=== PATIENT | female | born 1980 | race Two or more races ===

== ENCOUNTER 2016-05-13 18:21 | Emergency (ER) | payer OTHER ==
[~2016-05-13] VITALS: Ht 162.6 cm; Wt 97.5 kg
[~2016-05-13 18:21] MED LIST: FIORICET1 EA ORAL; NKM
[2016-05-13] MEDS ORDERED: Bacitracin Oint UD TOPIC ONE (18:45)
[2016-05-13] MEDS ORDERED: Norco 5mg/325mg tab ORAL ONE (18:45)
[2016-05-13] MEDS ORDERED: Lidocaine 1% MPF 10mg/ml 5ml INJ ONE (18:45)
[2016-05-13] MEDS ORDERED: TdaP Vaccine 0.5ml Syr IM ONE (18:45)
[2016-05-13 18:55] VITALS: BP 144/93
[2016-05-13] MEDS ORDERED: CEPHALEXIN500 MG ORAL (20:11)
[2016-05-13] MEDS ORDERED: NORCO 5-325 TA1 EAC1 ORAL (20:11)
[2016-05-13] MEDS ORDERED: IBUPROFEN600 MG ORAL (20:11)
[2016-05-13 20:29] VITALS: BP 134/84
[2016-05-13 20:30] VITALS: BP 134/84
--- NOTE | 2016-05-14 11:13 | Diagnostic Imaging Report ---
Indication: pain Findings: 3 views of the right hand were obtained. There is a fracture of the tuft of the third ray. Minimal distraction is noted. Fracture is comminuted. Impression: Acute comminuted fracture of tuft of the third distal phalanx
--- NOTE | 2016-05-16 12:07 | Emergency Room Report ---
History of Present Illness General Chief Complaint: Upper Extremity Injury Source: Patient Present Illness HPI The patient is a 35-year-old female presenting for injury to the right third finger which occurred today. The patient states that she closed the house door on the finger by accident. The patient noticed pain and bleeding to this area. Pain is described as a 9/10 dull/throbbing ache and does not radiate. Pain is worse with touch. The patient denies prior injury to this area. Patient denies numbness or tingling. The patient denies any other injury and denies other symptoms including N, V, F, chills, rash Patient is unsure of last tetanus shot Allergies: Coded Allergies: No Known Allergies (Unverified , 09/30/14) Patient History Past Medical History: see triage record Pertinent Family History: none Last Menstrual Period: 03/23/16 Now: No Reviewed Nursing Documentation: PMH: Agreed, PSxH: Agreed Nursing Documentation-PMH Hx Cardiac Problems: No Hx Cancer: No Hx Gastrointestinal Problems: No Review of Systems All Other Systems: negative except mentioned in HPI Physical Exam Vital Signs Date Time Temp Pulse Resp B/P Pulse Ox O2 Delivery O2 Flow Rate FiO2 05/13/16 18:30 98.6 110 20 144/93 98 Room Air Sp02 EP Interpretation: reviewed, normal General Appearance: no apparent distress, alert, GCS 15, non-toxic Head: normocephalic, atraumatic Eyes: bilateral eye PERRL, bilateral eye normal inspection ENT: hearing grossly normal, normal pharynx, no angioedema, normal voice Neck: full range of motion, supple/symm/no masses Musculoskeletal: normal range of motion, tender - TTP over the R 3rd distal finger Neurologic: alert, oriented x3, responsive, motor strength/tone normal, sensory intact, normal gait, speech normal Psychiatric: judgement/insight normal, memory normal, mood/affect normal, no suicidal/homicidal ideation Skin: normal turgor, laceration - There is a deep laceration to the R 3rd finger distal to DIPJ. Semi-circumferential. 3cm in length Lymphatic: no adenopathy Procedures Splinting Splinting : Consent: Verbal Location: R 3rd digit Pre-Made Type: metal - finger Splint: finger Pre-Proc Neuro Vasc Exam: normal Post-Proc Neuro Vasc Exam: normal Patient Tolerated: Well Complications: None Laceration/Wound Repair Laceration/Wound Repair : Consent: Verbal Wound Location: upper extremity Wound's Depth, Shape: irregular Wound Length (cm): 3 Wound Explored: clean Irrigated w/ Saline (ccs): 200 Betadine Prep?: Yes Anesthesia: 1% Lidocaine Volume Anesthetic (ccs): 5 Wound Debrided: minimal Wound Repaired With: sutures Suture Size/Type: 5:0, proline Number of Sutures: 4 Layer Closure?: No Sterile Dressing Applied?: Yes Splint Applied?: Yes Type of Splint Applied: metal finger Sling Applied?: No Patient Tolerated: Well Complications: None Medical Decision Making PA Attestation Dr. Rivers is my supervising physician. Patient management was discussed with my supervising physician Diagnostic Impression: Primary Impression: Open fracture of finger ER Course The patient is a 35-year-old female presenting for injury to the right third finger which occurred today. Ddx considered include but not limited to laceration, fracture, tendon/ligament injury, avulsion, nerve damage PE: vitals WNL. NAD There is a deep laceration to the R 3rd finger distal to DIPJ. Semi- circumferential. 3cm in length. SILT. Full AROM. Nail intact The wound was copiously irrigated with normal saline and cleaned with betadine. A 27g needle was used to administer 5mL of lidocaine w.o epi for digital block. 4 sutures were placed with 5-0 prolene. The wound was well approximated and the patient tolerated the procedure well. The wound was then cleaned and bacitracin was applied. This wound was closed loosely. A splint/sling was placed Xray: Acute comminuted fracture of tuft of the third distal phalanx Tetanus vaccination given. Because this was an open fracture, the patient is advised she needs to see hand surgeon/orthopedist as soon as possible. The patient is given two referrals. Pt will return to ER if needed for any reason including increasing pain, numbness/tingling, signs of wound infection, fever Pt given prescription for keflex and pain medication. Other X-Ray Diagnostic Results Other X-Ray Diagnostic Results : X-Ray Ordered: R hand Date: May 13, 2016 EP Interpretation: Yes Findings: other - fracture of the 3rd distal phalynx Number of Views: 3 PA Scribe Text I am acting as scribe for my supervising physician. My supervising physician's interpretation of the R hand xrays are there is a fracture of the third distal phalanx Last Vital Signs Date Time Temp Pulse Resp B/P Pulse Ox O2 Delivery O2 Flow Rate FiO2 05/13/16 20:30 98.6 87 20 134/84 98 Room Air Status: improved Disposition: HOME, SELF-CARE Condition: Improved Scripts Cephalexin* (KEFLEX*) 500 Mg Capsule 500 MG ORAL EVERY 6 HOURS, #28 CAP Prov: GISELLE SIMS P.A. 05/13/16 Hydrocodone Bit/Acetaminophen 5-325* (NORCO 5-325 TABLET*) 1 Each Tablet 1 TAB ORAL Q6HR Y for For Pain, #10 TAB Prov: GISELLE SIMS P.A. 05/13/16 Ibuprofen* (MOTRIN*) 600 Mg Tablet 600 MG ORAL Q8H Y for For Pain, #30 TAB 0 Refills Prov: GISELLE SIMS P.A. 05/13/16 Referrals: [facility],REFERRING (PCP) IMMANUEL GUILLAUME PERRY M.D. Patient Instructions: Laceration Care, Adult, Finger Fracture Additional Instructions: I discussed my findings with the patient. All questions and concerns have been answered. Treatment and medication compliance have been addressed. Return to ED if pain remains or worsens, numbness or tingling occurs, new rash is noticed, fever is noticed, or if needed for any reason. The patient is given information to see orthopedic physician as soon as possible. Patient verbalized understanding of discharge instructions. GISELLE SIMS May 16, 2016 12:07
== END 2016-05-13 20:30 | disposition home or self-care (01) ==
LOC: EMR 20:11
DX: S62.632B Displaced fracture of distal phalanx of right middle finger, initial encounter for open fracture (principal); W23.0XXA Caught, crushed, jammed, or pinched between moving objects, initial encounter; Y92.019 Unspecified place in single-family (private) house as the place of occurrence of the external cause; Z23 Encounter for immunization
CPT/HCPCS: 12002; 29280; 73130; 90471; 90715; 99284; Z7502

== ENCOUNTER 2019-06-30 01:40 | Emergency (ER) | payer OTHER ==
[~2019-06-30] VITALS: Ht 165.1 cm; Wt 77.1 kg
[~2019-06-30 01:40] MED LIST changes: +CEPHALEXIN500 MG ORAL; +IBUPROFEN600 MG ORAL; +NORCO 5-325 TA1 EAC1 ORAL
--- NOTE | 2019-06-30 02:10 | NUR ---
ED Nurse Note: Recieved pt from home, here with c/o needing pain meds, pt has hx of carpul tunnels surgery to right hand and c/o wrist pain at 10/10 and home meds not working for past 2 days, denies re-injury or any other omnplaints, pt able to mofe extremity, all pulses present and cap refill less than 3 sec.
[2019-06-30] MEDS ORDERED: NORCO 5-325 TA1 EAC1 ORAL (02:42)
[2019-06-30 02:45] VITALS: BP 129/84
--- NOTE | 2019-06-30 02:45 | NUR ---
ER DISCHARGE NOTE: Patient is cleared to be discharged per ERMD, pt is aox4, on room air, with stable vital signs. pt was given dc and prescription instructions, pt was able to verbalize understanding, pt id band removed without complications. pt is able to ambulate with steady gait. pt took all belongings.
--- NOTE | 2019-06-30 03:46 | Emergency Room Report ---
History of Present Illness General Chief Complaint: Upper Extremity Injury Source: Patient Present Illness HPI 38-year-old female presents for pain to right wrist. History of carpal tunnel and has had surgery on both wrists. States she is having increasing pain to the right wrist for the last few days. Normally relieved with [id number]-[id number] medication but is not resolving at this time. Denies any fall or injury. Pain is 10 out of 10, throbbing, nonradiating. No other aggravating relieving factors. Denies any other associated symptoms Allergies: Coded Allergies: No Known Allergies (Unverified , 09/30/14) COVID-19 Screening Contact w/high risk pt: No Recent Travel to affected area: No Experienced COVID-19 symptoms?: No COVID-19 Testing performed ORTHOPEDIC DESIGNER: No Patient History Past Medical History: none Past Surgical History: none Pertinent Family History: none Social History: Denies: smoking, alcohol use, drug use Last Menstrual Period: 06-19-2019 Now: No Immunizations: UTD Reviewed Nursing Documentation: PMH: Agreed; PSxH: Agreed Nursing Documentation-PMH Hx Cardiac Problems: No Hx Cancer: No Hx Gastrointestinal Problems: No Review of Systems All Other Systems: negative except mentioned in HPI Physical Exam Vital Signs Date Time Temp Pulse Resp B/P (MAP) Pulse Ox O2 Delivery O2 Flow Rate FiO2 06/30/19 02:01 98.2 104 18 125/85 (98) 95 Room Air Sp02 EP Interpretation: reviewed, normal General Appearance: no apparent distress, alert, GCS 15, non-toxic Head: normocephalic, atraumatic Eyes: bilateral eye normal inspection, bilateral eye PERRL ENT: hearing grossly normal, normal pharynx, no angioedema, normal voice Neck: full range of motion, supple/symm/no masses Respiratory: chest non-tender, lungs clear, normal breath sounds, speaking full sentences Cardiovascular #1: regular rate, rhythm, no edema Cardiovascular #2: 2+ carotid (R), 2+ carotid (L), 2+ radial (R), 2+ radial (L) , 2+ dorsalis pedis (R), 2+ dorsalis pedis (L) Gastrointestinal: normal bowel sounds, non tender, soft, non-distended, no guarding, no rebound Rectal: deferred Genitourinary: normal inspection, no CVA tenderness Musculoskeletal: back normal, normal range of motion, gait/station normal, non- tender Neurologic: alert, motor strength/tone normal, oriented x3, sensory intact, responsive, speech normal Psychiatric: judgement/insight normal, memory normal, mood/affect normal, no suicidal/homicidal ideation Reflexes: 3+ bicep (R), 3+ bicep (L), 3+ tricep (R), 3+ tricep (L), 3+ knee (R) , 3+ knee (L) Lymphatic: no adenopathy Medical Decision Making Diagnostic Impression: Primary Impression: Carpal tunnel syndrome Qualified Codes: G56.01 - Carpal tunnel syndrome, right upper limb ER Course Hospital Course 38-year-old female presents to ED complaining of R wrist pain no trauma Differential diagnoses include: Fracture, dislocation, sprain, contusion, bursitis Clinical course Patient placed on stretcher. After initial history, physical exam reveals an middle-aged female in no acute distress. There is pain localized to the fourth and fifth digits of right hand. No focal neurological deficits. Consistent with carpal tunnel syndrome. I discussed findings with patient. Patient would benefit from wearing a wrist splint which she states she has at home. Patient will start a short course of [place]. Patient would benefit from outpatient Ortho evaluation. States she will follow-up with her surgeon. Safe for discharge for close outpatient follow -up Diagnosis - carpal tunnel syndrome stable and discharged to home with prescription for [place]. Followup with Ortho. Return to ED if symptoms recur or worsen Last Vital Signs Date Time Temp Pulse Resp B/P (MAP) Pulse Ox O2 Delivery O2 Flow Rate FiO2 06/30/19 02:45 98.3 77 18 129/84 95 Room Air Status: improved Disposition: HOME, SELF-CARE Condition: Stable Scripts Hydrocodone Bit/Acetaminophen 5-325* (NORCO 5-325 TABLET*) 1 Each Tablet 1 TAB ORAL Q6H PRN for FOR PAIN, #10 TAB 0 Refills Prov: Yo Quinonez MD 06/30/19 Referrals: [facility],REFERRING (PCP) Cody Moss MD Patient Instructions: Carpal Tunnel Syndrome, [id number] Yo Quinonez MD June 30, 2019 03:46
== END 2019-06-30 02:45 | disposition home or self-care (01) ==
LOC: EMR 02:17
DX: G56.01 Carpal tunnel syndrome, right upper limb (principal)
CPT/HCPCS: 99282

== ENCOUNTER 2019-08-03 04:40 | Emergency (ER) | payer OTHER ==
[~2019-08-03] VITALS: Ht 165.1 cm; Wt 86.2 kg
[2019-08-03 04:58] VITALS: BP 136/98
[2019-08-03 05:00] VITALS: BP 136/98
--- NOTE | 2019-08-03 05:00 | Emergency Room Report ---
History of Present Illness General Chief Complaint: General Complaint Source: Patient Present Illness HPI Patient presents with complaints of left wrist pain reports that she has had previous surgery on the right wrist At this hospital and had left wrist surgery on the left side at a different facility she felt that the left wrist was now exacerbated Denies any acute trauma or fall denies any elbow pain denies any fevers or chills denies any swelling pain is worse with flexing the hand also increased with extension at the wrist Allergies: Coded Allergies: No Known Allergies (Unverified , 09/30/14) COVID-19 Screening Contact w/high risk pt: No Recent Travel to affected area: No Experienced COVID-19 symptoms?: No COVID-19 Testing performed PSYCHOMETRICIAN: No Patient History Past Medical History: see triage record Last Menstrual Period: 07/19 Now: No : 3 Para: 1 Reviewed Nursing Documentation: PMH: Agreed; PSxH: Agreed Nursing Documentation-PMH Hx Cancer: No Hx Gastrointestinal Problems: No Review of Systems All Other Systems: negative except mentioned in HPI Physical Exam Vital Signs Date Time Temp Pulse Resp B/P (MAP) Pulse Ox O2 Delivery O2 Flow Rate FiO2 08/03/19 04:45 98.2 102 136/98 (111) 99 Room Air Sp02 EP Interpretation: reviewed, normal General Appearance: well appearing, no apparent distress Head: normocephalic, atraumatic Eyes: bilateral eye PERRL, bilateral eye EOMI ENT: hearing grossly normal, normal pharynx, TMs + canals normal, uvula midline Neck: full range of motion, supple, no meningismus, no bony tend Respiratory: no respiratory distress, no retraction, no accessory muscle use Gastrointestinal: normal bowel sounds, non tender, soft, no mass, no organomegaly Musculoskeletal: other - Some discomfort on palpation of the mid palmar wrist aspect Neurologic: motor strength/tone normal, oriented x3, sensory intact, responsive Psychiatric: mood/affect normal Skin: no rash Lymphatic: normal inspection, no adenopathy Procedures Splinting Splinting : Consent: Verbal Location: Left wrist Pre-Made Type: velcro Splint: volar Pre-Proc Neuro Vasc Exam: normal Post-Proc Neuro Vasc Exam: normal Patient Tolerated: Well Complications: None Medical Decision Making Diagnostic Impression: Primary Impression: Carpal tunnel syndrome Additional Impression: wrist pain ER Course Patient's history and findings are consistent with likely carpal tunnel syndrome patient is provided a splint She has been provided [place] here in the last month I felt that it was more appropriate for her to follow-up with primary physician for further opiate medication patient does feel improved with the splint applied And is stable for close outpatient follow-up patient did not want any other medications at this time Last Vital Signs Date Time Temp Pulse Resp B/P (MAP) Pulse Ox O2 Delivery O2 Flow Rate FiO2 08/03/19 04:45 98.2 102 136/98 (111) 99 Room Air Status: improved Disposition: HOME, SELF-CARE Condition: Improved Referrals: [facility]ELLE MASSEY,REFERRING (PCP) [facility] Jamia Leger [facility] Patient Instructions: Carpal Tunnel Syndrome Additional Instructions: Patient is provided with the discharge instructions notified to follow up with primary doctor in the next 2-3 days otherwise return to the er with any worsening symptoms. Please note that this report is being documented using [email or web address] technology. This can lead to erroneous entry secondary to incorrect interpretation by the dictating instrument. Eric Bahena DO Aug 03, 2019 05:00
== END 2019-08-03 05:00 | disposition home or self-care (01) ==
LOC: EMR 04:48
DX: G56.02 Carpal tunnel syndrome, left upper limb (principal); M25.532 Pain in left wrist
CPT/HCPCS: 29125; Z7502; 99282

== ENCOUNTER 2019-11-24 08:46 | Emergency (ER) | payer OTHER ==
[~2019-11-24] VITALS: Ht 165.1 cm; Wt 90.7 kg
[~2019-11-24 08:46] MED LIST changes: +ACETAMINOPHEN500 M3 ORAL
[2019-11-24 08:53] VITALS: BP 131/84
--- NOTE | 2019-11-24 09:02 | NUR ---
ED Nurse Note: Patient from home and walked in due to abscess on her RLQ started a couple of days ago. Pt reports that it popped out yesterday and pus came out. Noted open yellow abscess with mild redness on surroundings. No pus coming out at this time. AAO x4 and ambulatory.
[2019-11-24] MEDS ORDERED: BACTRIM DS TAB1 EAC1 ORAL (09:03)
[2019-11-24] MEDS ORDERED: CEPHALEXIN500 M1 ORAL (09:03)
--- NOTE | 2019-11-24 09:04 | NUR ---
ED Nurse Note: Wound Culture sent to lab.
[2019-11-24 09:10] VITALS: BP 127/80
--- NOTE | 2019-11-24 09:10 | NUR ---
ER DISCHARGE NOTE: Patient is cleared to be discharged per ERMD, pt is aox4, on room air, with stable vital signs. pt was given dc and prescription instructions, pt was able to verbalize understanding, pt id band removed. pt is able to ambulate with steady gait. pt took all belongings.
--- NOTE | 2019-11-24 09:10 | Emergency Room Report ---
History of Present Illness General Chief Complaint: Skin Rash/Abscess Source: Patient, Medical Record Present Illness HPI Patient is a 39-year-old obese female denies any past medical history who presents to the ER complaining of an ingrown hair to her right lower abdomen. Patient states that she noticed it several days ago and last night she "popped" the pimple and pus came out. She states that since then the swelling has improved as well as the pain. She denies any fever or chills. She denies any nausea or vomiting. Patient states that she did not take any antibiotics as of yet. She states that she has been cleaning it with alcohol. She denies any tylor st pain or shortness of breath. Allergies: Coded Allergies: No Known Allergies (Unverified , 09/30/14) COVID-19 Screening Contact w/high risk pt: No Recent Travel to affected area: No Experienced COVID-19 symptoms?: No COVID-19 Testing performed PICKERS MATERIAL HANDLERS: Yes COVID-19 Screening: Positive COVID-19 COVID-19 Testing Source: na Patient History Last Menstrual Period: 10/22/2019 Reviewed Nursing Documentation: PMH: Agreed; PSxH: Agreed Nursing Documentation-PMH Hx Cancer: No Hx Gastrointestinal Problems: No Review of Systems All Other Systems: negative except mentioned in HPI Physical Exam Vital Signs Date Time Temp Pulse Resp B/P (MAP) Pulse Ox O2 Delivery O2 Flow Rate FiO2 11/24/19 08:53 98.2 95 18 131/84 (100) 96 Room Air Sp02 EP Interpretation: reviewed, normal General Appearance: no apparent distress, alert, GCS 15, non-toxic Head: normocephalic, atraumatic Eyes: bilateral eye normal inspection, bilateral eye PERRL ENT: hearing grossly normal, normal pharynx, no angioedema, normal voice Neck: full range of motion, supple/symm/no masses Respiratory: chest non-tender, lungs clear, normal breath sounds, speaking full sentences Cardiovascular #1: regular rate, rhythm, no edema Gastrointestinal: other - Right lower quadrant abdominal wall abscess that has drained minimal fluctuance with small amount of surrounding cellulitis no tenderness to palpation no guarding and no rebound, overweight Genitourinary: no CVA tenderness Musculoskeletal: normal range of motion Neurologic: chemical research technician III-XII nml as tested, oriented x3 Psychiatric: no suicidal/homicidal ideation Lymphatic: no adenopathy Medical Decision Making Diagnostic Impression: Primary Impression: Abscess ER Course Local wound care has been performed. Wound culture has been sent. A skin marker has been used to luke the area of cellulitis around the abscess. Patient advised to immediately return to the ER if it passes the line. Patient is afebrile and nontoxic-appearing. She has been started on Bactrim and Keflex. After discussing risks and benefits of further diagnostics, treatment plans, as well as indications for and risks of admission, the patient is agreeable to being discharged home. I have explained that their evaluation and treatment in the emergency department today is an important step towards them achieving better health but that their evaluation today is not intended to replace further evaluation and treatment by a physician in their local clinic. I have explained that while the current findings suggest no immediate life threatening emergency they will require further evaluation and treatment by a physician of their choice in their area. They understand that it will be necessary for them to review the final reports of their ED visit with their clinic physician. We have reviewed indications for return to the Emergency Department. I have explained that additional time may need to pass and/or additional testing as an outpatient may be necessary before a definitive diagnosis can be made. They tell me they are willing to follow up as instructed within the timeframe I recommend. They a ppear to understand what we discussed. Additionally they understand that if they are unable to be seen by an outpatient physician they are welcome, and in fact should, return to the Emergency Department for a repeat evaluation. The patient is stable at time of discharge. Last Vital Signs Date Time Temp Pulse Resp B/P (MAP) Pulse Ox O2 Delivery O2 Flow Rate FiO2 11/24/19 08:53 98.2 95 18 131/84 96 Room Air Disposition: HOME, SELF-CARE Condition: Stable Scripts Trimethoprim/Sulfamethoxazole 160/800* (BACTRIM DS TABLET*) 1 Each Tablet 1 TAB ORAL Q12H for 10 Days, #20 TAB 0 Refills Prov: Ragini Davila M.D. 11/24/19 Cephalexin* (KEFLEX*) 500 Mg Tablet 500 MG ORAL EVERY 6 HOURS for 10 Days, CAP Prov: Ragini Davila M.D. 11/24/19 Referrals: DANIELLE MASSEY,REFERRING (PCP) Patient Instructions: Abscess Additional Instructions: The patient was provided with discharge instructions, notified to follow-up with a primary care doctor and or specialist in the next 24-48 hours, and to return to the ED if they have worsening of their symptoms. Please note that this report is being documented using [employer] technology. This can lead to erroneous entry secondary to incorrect interpretation by the dictating instrument. Ragini Davila M.D. Nov 24, 2019 09:10
[2019-11-24] MEDS ORDERED: Bactrim-DS 1 tab ORAL ONE (09:15)
[2019-11-24] MEDS ORDERED: Cephalexin 500mg cap ORAL ONE (09:15)
[2019-11-26] MEDS ORDERED: IBUPROFEN600 M1 ORAL (19:57)
[2019-11-26] MEDS ORDERED: METFORMIN HCL500 M1 ORAL (19:57)
== END 2019-11-24 09:10 | disposition home or self-care (01) ==
LOC: EMR 08:56
DX: L02.211 Cutaneous abscess of abdominal wall (principal); E66.3 Overweight; Z68.33 Body mass index [BMI] 33.0-33.9, adult
CPT/HCPCS: 87070; 87205; Z7502; 99282

== ENCOUNTER → 2019-11-26 | Emergency (ER) | payer OTHER ==
[~2019-11-26] VITALS: Ht 165.1 cm; Wt 90.7 kg
[~2019-11-26] MED LIST changes: +BACTRIM DS TAB1 EAC1 ORAL; +CEPHALEXIN500 M1 ORAL; +IBUPROFEN600 M1 ORAL; +Ketorolac 30mg Inj IV ONE; +METFORMIN HCL500 M1 ORAL; +Omnipaque-300 100ml vial INJ PRN; +cefTRIAXone 1 GM in NS 55 ML IVPB ONE
[2019-11-26 17:10] VITALS: BP 122/78
--- NOTE | 2019-11-26 17:10 | NUR ---
ED Nurse Note: Patient walked in to ER due to infected wound on right abdomen. Stated hase no idea how she got it.Patient AAO x4, VSS at this time.
--- NOTE | 2019-11-26 17:54 | NUR ---
ED Nurse Note: US by bed side
[2019-11-26 18:05] LABS: BASOPHILS % (AUTO) 0.7 % (0.0-2.0); EOSINOPHILS % (AUTO) 7.1 % (0.0-3.0); HEMATOCRIT 35.5 % (37.0-47.0); HEMOGLOBIN 11.1 G/DL (12.0-16.0); MEAN CORPUSCULAR VOLUME 71 FL (80-99); MONOCYTES % (AUTO) 5.9 % (1.0-10.0); NEUTROPHILS % (AUTO) 56.2 % (45.0-75.0); PLATELET COUNT 422 K/UL (150-450); RED BLOOD COUNT 5.02 M/UL (4.20-5.40); RED CELL DISTRIBUTION WIDTH 16.2 % (11.6-14.8); WHITE BLOOD COUNT 6.1 K/UL (4.8-10.8)
[2019-11-26 18:14] LABS: ANION GAP 11 mmol/L (5-15); BLOOD UREA NITROGEN 7 mg/dL (7-18); CALCIUM 8.8 MG/DL (8.5-10.1); CARBON DIOXIDE 23 MMOL/L (21-32); CHLORIDE 104 MMOL/L (98-107); CREATININE 0.8 MG/DL (0.55-1.30); POTASSIUM 3.7 MMOL/L (3.5-5.1); SODIUM 138 MMOL/L (136-145)
[2019-11-26 18:19] LABS: ALANINE AMINOTRANSFERASE 17 U/L (12-78); ALBUMIN/GLOBULIN RATIO 0.7 (1.0-2.7); ALKALINE PHOSPHATASE 86 U/L (46-116); ASPARTATE AMINO TRANSFERASE 10 U/L (15-37); BILIRUBIN,TOTAL 0.2 MG/DL (0.2-1.0)
--- NOTE | 2019-11-26 19:10 | NUR ---
HAND-OFF: Report given to HALIE Flores.
--- NOTE | 2019-11-26 19:12 | Emergency Room Report ---
History of Present Illness General Chief Complaint: Skin Rash/Abscess Source: Patient Present Illness HPI 39-year-old female with no known significant past medical history here to get follow-up on right abdominal side abscess. Patient was in [place] [facility] few days ago and was prescribed Keflex and Bactrim. No blood draw was done. Reports that the abscess has gotten smaller however it has started draining and there is a hole inside her abdomen. Denies any nausea vomiting, fever and chills. Complains of pain at the site of the wound. Rates it 7 out of 10. No tenderness noted. Has not taken any other medication for the pain. Denies . Denies chest pain, shortness of breath, headache or dizziness. Is up-to-date with tetanus shot. Denies history of diabetes. Allergies: Coded Allergies: No Known Allergies (Unverified , 09/30/14) COVID-19 Screening Contact w/high risk pt: No Recent Travel to affected area: No Experienced COVID-19 symptoms?: No COVID-19 Testing performed [employer]: No Patient History Past Medical History: see triage record Past Surgical History: none Pertinent Family History: none Now: No Immunizations: UTD Reviewed Nursing Documentation: PMH: Agreed; PSxH: Agreed Nursing Documentation-PMH Past Medical History: No History, Except For Hx Cancer: No Hx Gastrointestinal Problems: No Review of Systems All Other Systems: negative except mentioned in HPI Physical Exam Vital Signs Date Time Temp Pulse Resp B/P (MAP) Pulse Ox O2 Delivery O2 Flow Rate FiO2 11/26/19 16:57 98.4 90 18 122/78 (93) 99 Room Air Sp02 EP Interpretation: reviewed, normal General Appearance: no apparent distress, alert, GCS 15, non-toxic Head: normocephalic, atraumatic Eyes: bilateral eye normal inspection, bilateral eye PERRL ENT: hearing grossly normal, normal pharynx, no angioedema, normal voice Neck: full range of motion, supple/symm/no masses Respiratory: normal inspection, chest non-tender, lungs clear, normal breath sounds, no rhonchi Cardiovascular #1: regular rate, rhythm, no edema, no murmur, normal capillary refill Gastrointestinal: non tender, soft, no mass, no organomegaly, no peritonitis, no bruit, non-distended, other - Training abscess right-sided abdomen Genitourinary: no CVA tenderness Musculoskeletal: back normal Neurologic: alert, motor strength/tone normal, oriented x3, sensory intact, responsive, speech normal Psychiatric: judgement/insight normal, memory normal, mood/affect normal, no suicidal/homicidal ideation Skin: other - Draining abscess right-sided abdomen Lymphatic: no adenopathy Medical Decision Making PA Attestation All my diagnosis and treatment plans were reviewed ad discussed with my supervising physician Dr. Quinonez Diagnostic Impression: Primary Impression: Abscess Additional Impressions: Diabetes Diverticulosis ER Course 39-year-old female with no known significant past medical history here to get follow-up on right abdominal side abscess. Patient was in [place] [facility] few days ago and was prescribed Keflex and Bactrim. No blood draw was done. Reports that the abscess has gotten smaller however it has started draining and there is a hole inside her abdomen. Denies any nausea vomiting, fever and chills. Complains of pain at the site of the wound. Rates it 7 out of 10. No tenderness noted. Has not taken any other medication for the pain. Denies . Denies chest pain, shortness of breath, headache or dizziness. Is up-to-date with tetanus shot. Denies history of diabetes. Ddx considered but are not limited to : Cellulitis, sepsis, infected abdominal abscess, fistula,, superficial infection, abscess, diverticulosis Vital signs: are WNL, pt. is afebrile H&PE are most consistent with:abscess, diabetes ORDERS: CBC, CMP, lactic acid, abdominal CT, abdominal ultrasound, metformin, ibuprofen ED INTERVENTIONS: Rocephin, Toradol DISCHARGE: At this time pt. is stable for d/c to home. Will provide printed patient care instructions, and any necessary prescriptions. Care plan and follow up instructions have been discussed with the patient prior to discharge.take medication as directed, continue with antibiotics, follow up with primary care provider. avoid high intake of carbohydrates and sugar, if worsening symptoms return to emergency room. increase fiber intake and hydration. f/u GI CT/MRI/US Diagnostic Results CT/MRI/US Diagnostic Results #1: Imaging Test Ordered: Abdominal ultrasound Impression Within normal limits CT/MRI/US Diagnostic Results #2: Imaging Test Ordered: CT abdomen pelvis with contrast Impression COMPARISON: No relevant prior studies available. FINDINGS: Lung bases: Unremarkable. ABDOMEN: Liver: Unremarkable. Gallbladder and bile ducts: Unremarkable. Pancreas: Unremarkable. Spleen: Unremarkable. Adrenals: Unremarkable. Kidneys and ureters: Unremarkable. No obstructing stones. No hydronephrosis. Stomach and bowel: Mild colonic diverticulosis without diverticulitis. PELVIS: Appendix: Normal appendix. Bladder: Unremarkable. Reproductive: Unremarkable as visualized. ABDOMEN and PELVIS: Intraperitoneal space: Unremarkable. No free air. No significant fluid collection. Bones/joints: No acute fracture. Soft tissues: Open wound in the right lower quadrant abdominal wall which is contained to the subcutaneous fat. No underlying fluid collection. Vasculature: Unremarkable. Lymph nodes: Unremarkable. IMPRESSION: 1. Open wound in the right lower quadrant abdominal wall which is contained to the subcutaneous fat. No underlying fluid collection. 2. Mild colonic diverticulosis without diverticulitis. Last Vital Signs Date Time Temp Pulse Resp B/P (MAP) Pulse Ox O2 Delivery O2 Flow Rate FiO2 11/26/19 18:16 98.4 11/26/19 17:10 18 122/78 99 Room Air 11/26/19 16:57 90 Disposition: HOME, SELF-CARE Condition: Stable Scripts Ibuprofen* (MOTRIN*) 600 Mg Tablet 600 MG ORAL Q6H PRN for For Pain, #30 TAB 0 Refills Prov: Penny Ag 11/26/19 Metformin Hcl* (METFORMIN HCL*) 500 Mg Tablet 500 MG ORAL DAILY for Diabetes Mellitus for 30 Days, #30 TAB Prov: Penny Ag 11/26/19 Patient Instructions: Abscess, Diabetes Mellitus and Food Additional Instructions: .take medication as directed, continue with antibiotics, follow up with primary care provider. avoid high intake of carbohydrates and sugar, if worsening symptoms return to emergency room Penny Ag Nov 26, 2019 19:12
--- NOTE | 2019-11-26 19:42 | Diagnostic Imaging Report ---
EXAM: CT Abdomen and Pelvis With Intravenous Contrast CLINICAL HISTORY: PAIN TECHNIQUE: Axial computed tomography images of the abdomen and pelvis with intravenous contrast. CTDI is 18.5 mGy and DLP is 955 mGy-cm. One or more of the following dose reduction techniques were used: automated exposure control, adjustment of the mA and/or kV according to patient size, use of iterative reconstruction technique. COMPARISON: No relevant prior studies available. FINDINGS: Lung bases: Unremarkable. ABDOMEN: Liver: Unremarkable. Gallbladder and bile ducts: Unremarkable. Pancreas: Unremarkable. Spleen: Unremarkable. Adrenals: Unremarkable. Kidneys and ureters: Unremarkable. No obstructing stones. No hydronephrosis. Stomach and bowel: Mild colonic diverticulosis without diverticulitis. PELVIS: Appendix: Normal appendix. Bladder: Unremarkable. Reproductive: Unremarkable as visualized. ABDOMEN and PELVIS: Intraperitoneal space: Unremarkable. No free air. No significant fluid collection. Bones/joints: No acute fracture. Soft tissues: Open wound in the right lower quadrant abdominal wall which is contained to the subcutaneous fat. No underlying fluid collection. Vasculature: Unremarkable. Lymph nodes: Unremarkable. IMPRESSION: 1. Open wound in the right lower quadrant abdominal wall which is contained to the subcutaneous fat. No underlying fluid collection. 2. Mild colonic diverticulosis without diverticulitis.
--- NOTE | 2019-11-27 11:29 | Diagnostic Imaging Report ---
Indication: Right lower quadrant pain, redness open wound right lower quadrant discharge Technique: Rodriguez-scale and duplex images of the upper abdomen were obtained. Grayscale images of the right lower quadrant around open wound Comparison: none Findings: Gallbladder is unremarkable, without stones, wall thickening, nor pericholecystic fluid. Sonographic Young's sign is negative. Common bile duct measures 1 mm in diameter. No intrahepatic biliary ductal dilatation. Liver demonstrates diffusely increased echogenicity, consistent with diffuse hepatocellular disease, most likely fatty change. Portal vein and hepatic veins are patent. Pancreas is unremarkable. Spleen is unremarkable. Left kidney measures 11.9 cm in length. Right kidney measures 12.5 cm length. Both kidneys demonstrate normal echogenicity. There is no hydronephrosis. No focal abnormality . Non-aneurysmal abdominal aorta . Examination of the right lower quadrant demonstrates no evidence of underlying abscess Impression: No sonographic evidence of abscess related to right lower quadrant wound Liver demonstrates diffusely increased echogenicity, consistent with diffuse hepatocellular disease, most likely fatty change. Negative for gallstones or dilated bile ducts or other significant abnormality
== END | disposition home or self-care (01) ==
LOC: EMR 19:55
DX: L02.211 Cutaneous abscess of abdominal wall (principal); E11.9 Type 2 diabetes mellitus without complications; K57.90 Diverticulosis of intestine, part unspecified, without perforation or abscess without bleeding; S31.103A Unspecified open wound of abdominal wall, right lower quadrant without penetration into peritoneal cavity, initial encounter; X58.XXXA Exposure to other specified factors, initial encounter; Y92.9 Unspecified place or not applicable
CPT/HCPCS: 36415; 74177; 76700; 80053; 83605; 84703; 85025; 96365; 96375; J0696; J1885; Q9965; Z7502; 99284